=== PATIENT | male | born 1960 | race Caucasian/White ===

== ENCOUNTER 2018-10-03 21:23 | Emergency (ER) | payer SELFPAY ==
--- NOTE | 2018-10-03 21:26 | PDOC ---
History of Present Illness - History of Present Illness Initial Comments: 10/03/18 21:35 HPI: The patient is a 58 year old male, with no significant past medical history, who presents to the emergency department with, left flank pain radiating to his abdomen. As per patient patient, his symptoms onset a few hours prior to his arrival and since then he has not been able to keep still, prompting his arrival to the ER tonight. He denies any history of kidney stones. He denies any recent fevers, chills, headache or dizziness. He denies any recent nausea, vomit, diarrhea or constipation. He denies any recent chest pain or shortness of breath. He denies any recent dysuria, frequency, urgency or hematuria. PAST MEDICAL HISTORY: no significant history PAST SURGICAL HISTORY: no significant history FAMILY HISTORY: no pertinent history SOCIAL HISTORY: Pt lives with family and is employed. MEDICATIONS: reviewed ALLERGIES: As per nursing notes ROS: General: No fevers or chills, no weakness, no weight loss HEENT: No change in vision. No sore throat,. No ear pain CardioVascular: No chest pain or shortness of breath Respiratory:No cough, or wheezing. Gastrointestinal: no nausea, vomiting, diarrhea or constipation, No rectal bleeding Genitourinary: Left flank tenderness. No dysuria, hematuria, or frequency Musculoskeletal: No joint or muscle pain or swelling Neurologic: No headache, vertigo, dizziness or loss of consciousness Psychiatric: nor depression Skin: No rashes or easy bruising Endocrine: no increased thirst or abnormal weight change Allergic: no skin or latex allergy All other systems reviewed and normal Physical Exam: GENERAL: The patient is awake, alert, and fully oriented, in no acute distress. HEAD: Normal with no signs of trauma. EYES: Pupils equal, round and reactive to light, extraocular movements intact, sclera anicteric, conjunctiva clear. EXTREMITIES: Normal range of motion, no edema. +BACK: Left CVA and left flank tenderness. NEUROLOGICAL: Normal speech, normal gait. PSYCH: Normal mood, normal affect. SKIN: Warm, Dry, normal turgor, no rashes or lesions noted. <Ruben Romo - Last Filed: 10/03/18 21:39> - General History Source: Patient Exam Limitations: No Limitations <Siria Lieberman I - Last Filed: 10/03/18 23:05> - General Chief Complaint: Pain, Acute Stated Complaint: LEFT FLANK PAIN RADIATING INTO ABDOMEN Time Seen by Provider: 10/03/18 21:26 Past History <Ruben Romo - Last Filed: 10/03/18 21:39> <Siria Lieberman I - Last Filed: 10/03/18 23:05> - Past Medical History Allergies/Adverse Reactions: Allergies Allergy/AdvReac Type Severity Reaction Status Date / Time No Known Allergies Allergy Verified 10/03/18 21:28 Home Medications: Ambulatory Orders Ondansetron [Zofran Odt -] 4 mg SL TID PRN #12 od.tablet 10/03/18 Oxycodone HCl/Acetaminophen [Percocet 5-325 mg Tablet] 1 - 2 tab PO Q4H #20 tablet MDD 8 10/03/18 Tamsulosin HCl [Flomax] 0.4 mg PO DAILY #30 cap.er.24h 10/03/18 ED Treatment Course - LABORATORY CBC & Chemistry Diagram: 10/03/18 21:40 10/03/18 21:40 <Siria Lieberman I - Last Filed: 10/03/18 23:05> *DC/Admit/Observation/Transfer - Attestations Scribe Attestion: 10/03/18 21:36 Documentation prepared by Ruben Romo, acting as medical claims representative for Siria Lieberman MD. <Ruben Romo - Last Filed: 10/03/18 21:39> - Discharge Dispostion Decision to Admit order: No <Siria Lieberman I - Last Filed: 10/03/18 23:05> Diagnosis at time of Disposition: Kidney stone on left side - Discharge Dispostion Disposition: HOME Condition at time of disposition: Stable - Prescriptions Prescriptions: Ondansetron [Zofran Odt -] 4 mg SL TID PRN #12 od.tablet PRN Reason: Nausea Oxycodone HCl/Acetaminophen [Percocet 5-325 mg Tablet] 1 - 2 tab PO Q4H #20 tablet MDD 8 Tamsulosin HCl [Flomax] 0.4 mg PO DAILY #30 cap.er.24h - Patient Instructions Additional Instructions: For the pain take ibuprofen or Tylenol as directed on the bottle. If he needed something stronger U can take the Percocet 1-2 tablets every 4-6 hours as needed. The Percocet will make you drowsy so you cannot take it if you need to do anything that requires her concentration. The Percocet will also make you constipated. Call your primary care doctor in the morning and get a referral to the a urologist. Stay well-hydrated take Flomax to help keep her urine flowing. If you develop any nausea take Zofran as directed 1 tablet every 6-8 hours if needed. Return to the emergency department immediately with ANY new, persistent or worsening symptoms. Continue any medications as previously prescribed by your physician. You should follow up with your primary doctor as soon as possible regarding today's emergency department visit. . Please make sure your doctor reviews the results of your emergency evaluation. Thank you for coming to the Emergency Department today for your care. It was a pleasure to see you today. Please note that your evaluation is INCOMPLETE until you follow-up with your doctor.
[2018-10-03] MEDS ORDERED: morphine CARPU-JECT 2 MG/1 ML DISP.SYRIN IVPUSH ONE (21:30)
[2018-10-03] MEDS ORDERED: KETOROLAC TROMETHAMINE 30 MG/1 ML VIAL IVPUSH ONE (21:30)
[2018-10-03] MEDS ORDERED: SODIUM CHLORIDE 1,000 ML IV ONE (21:30)
[2018-10-03] MEDS ORDERED: ONDANSETRON 4 MG/2 ML VIAL IVPB ONE (21:30)
[2018-10-03] MEDS ORDERED: ONDANSETRON 4 MG/2 ML VIAL ONE (21:34)
[2018-10-03] MEDS ORDERED: KETOROLAC TROMETHAMINE 30 MG/1 ML VIAL ONE (21:34)
[2018-10-03] MEDS ORDERED: morphine SULFATE 4 MG/ML VIAL ONE ×2 (21:35→22:22)
[2018-10-03 21:46] LABS: URINE APPEARANCE Clear; URINE BILIRUBIN Negative (NEGATIVE); URINE COLOR Yellow; URINE GLUCOSE (UA) Negative (NEGATIVE); URINE KETONE Negative (NEGATIVE); URINE LEUK ESTERASE Negative (NEGATIVE); URINE NITRITE Negative (NEGATIVE); URINE PROTEIN Negative (NEGATIVE); URINE UROBILINOGEN 0.2 (0.2-1.0)
[2018-10-03 21:51] VITALS: TEMP 98.4; BMI 29.2
[2018-10-03 21:54] LABS: BASO % 1.2 % (0-2.0); EOS % 2.3 % (0-4.5); HEMATOCRIT 49.8 % (35.4-49); HEMOGLOBIN 16.4 GM/dl (11.7-16.9); LYMPH % 42.4 % (8-40); MCH 29.6 pg (25.7-33.7); MCHC 32.9 g/dl (32.0-35.9); MEAN CELL VOLUME 89.9 fl (80-96); MEAN PLT VOLUME 8.8 fl (7.5-11.1); NEUT % 47.1 % (42.8-82.8); PLATELET COUNT 246 K/MM3 (134-434); RBC 5.54 M/mm3 (4.00-5.60); RDW 12.8 % (11.9-15.9); WHITE BLOOD COUNT 9.4 K/mm3 (4.0-10.8)
[2018-10-03 22:02] LABS: URINE BACTERIA 1+ /hpf (NEGATIVE); URINE WBC 0-2 (0-2)
[2018-10-03 22:05] LABS: ALBUMIN 4.3 g/dl (3.5-5.0); ALK PHOS 71 U/L (32-92); ANION GAP 6 MMOL/L (8-16); BILIRUBIN,TOTAL 0.6 mg/dl (0.2-1.0); BLOOD UREA NITROGEN 16 mg/dl (7-18); CALCIUM 9.2 mg/dl (8.4-10.2); CHLORIDE 103 mmol/L (98-107); CO2 25 mmol/L (22-28); CREATININE 1.1 mg/dl (0.6-1.3); GLUCOSE,RANDOM 116 mg/dl (74-106); POTASSIUM 4.2 mmol/L (3.5-5.1); SGOT/AST 30 U/L (10-42); SGPT/ALT 36 U/L (10-40); SODIUM 134 mmol/L (136-145); TOT PROT 7.9 g/dl (6.4-8.3)
[2018-10-03] MEDS ORDERED: morphine CARPU-JECT 4 MG/1 ML DISP.SYRIN IVPUSH ONE (22:20)
[2018-10-03 23:05] VITALS: BP 152/103; PULSE 85
== END 2018-10-03 23:14 | disposition home or self-care (01) ==
LOC: FER 21:23
PROC: 3E0337Z Introduction of Electrolytic and Water Balance Substance into Peripheral Vein, Percutaneous Approach (ICD-10-PCS; principal; 2018-10-03)
PROC: 3E033GC Introduction of Other Therapeutic Substance into Peripheral Vein, Percutaneous Approach (ICD-10-PCS; 2018-10-03)
PROC: 3E033NZ Introduction of Analgesics, Hypnotics, Sedatives into Peripheral Vein, Percutaneous Approach (ICD-10-PCS; 2018-10-03)
PROC: 3E0333Z Introduction of Anti-inflammatory into Peripheral Vein, Percutaneous Approach (ICD-10-PCS; 2018-10-03)
DX: N20.0 Calculus of kidney (principal)
CPT/HCPCS: 36415; 74176; 80053; 81003; 81015; 85025; 99281-25; J7030

== ENCOUNTER 2022-05-09 14:41 | Emergency (ER) | payer OTHER ==
[2022-05-09 14:53] VITALS: BP 120/80; PULSE 70; TEMP 99.1; BMI 28.3
== END 2022-05-09 16:16 | disposition home or self-care (01) ==
LOC: FER 14:41
DX: S51.819A Laceration without foreign body of unspecified forearm, initial encounter (principal)
CPT/HCPCS: 73130-TC-RT-FY; 99284-25

== ENCOUNTER 2022-05-17 16:29 | Emergency (ER) | payer OTHER ==
[2022-05-17 16:35] VITALS: BP 134/86; PULSE 68; RESP 16; TEMP 98; BMI 28.2
== END 2022-05-17 17:11 | disposition home or self-care (01) ==
LOC: FER 16:29
DX: Z48.02 Encounter for removal of sutures (principal)
CPT/HCPCS: 99281-25

== ENCOUNTER 2024-09-07 22:07 | Emergency (ER) | payer OTHER ==
[2024-09-07] MEDS ORDERED: IBUPROFEN 600 MG TABLET (FP) PO ONE (22:21)
[2024-09-07] MEDS: IBUPROFEN 600 MG TABLET (FP) PO ONE (22:22)
[2024-09-07 22:40] VITALS: RESP 16; BMI 28.2
[2024-09-07 22:48] VITALS: BP 115/75; PULSE 78; TEMP 98.2
== END 2024-09-07 22:54 | disposition home or self-care (01) ==
LOC: FER 22:07
DX: S90.122A Contusion of left lesser toe(s) without damage to nail, initial encounter (principal); W20.8XXA Other cause of strike by thrown, projected or falling object, initial encounter
CPT/HCPCS: 73630-TC-LT; 99283-25

== ENCOUNTER 2025-07-30 19:09 | Emergency (ER) | payer OTHER ==
[2025-07-30 19:31] VITALS: BP 120/74; PULSE 78; RESP 20; TEMP 98.6; BMI 34.0
[2025-07-30] MEDS ORDERED: KETOROLAC TROMETHAMINE 60 MG/2 ML VIAL ONE (20:24)
[2025-07-30] MEDS: KETOROLAC TROMETHAMINE 60 MG/2 ML VIAL IM ONE (20:26)
== END 2025-07-30 20:34 | disposition home or self-care (01) ==
LOC: FER 19:09
PROC: 3E0233Z Introduction of Anti-inflammatory into Muscle, Percutaneous Approach (ICD-10-PCS; principal; 2025-07-30)
DX: M25.551 Pain in right hip (principal)
CPT/HCPCS: 72170-TC-FY; 73502-TC-RT-FY; 96372; 99284-25